=== PATIENT | male | born 1960 | race Caucasian/White ===

== ENCOUNTER 2018-07-23 07:23 | Day surgery (SDC) | payer BC ==
[2018-07-23] MEDS ORDERED: LIDOCAINE 2% MDV (20MG/ML) 20ML VIAL IV ONE (07:24)
[2018-07-23] MEDS ORDERED: PROPOFOL 10 MG/ML VIAL IV ONE (07:24)
== END 2018-07-23 08:45 | disposition home or self-care (01) ==
LOC: HOP 07:23
PROVIDERS: ATTEND Internal Medicine Gastroenterology
DX: Z12.11 Encounter for screening for malignant neoplasm of colon (principal); D12.4 Benign neoplasm of descending colon; K62.1 Rectal polyp; I10 Essential (primary) hypertension; E78.00 Pure hypercholesterolemia, unspecified; R56.9 Unspecified convulsions